=== PATIENT | female | born 1945 | race Caucasian/White ===

== ENCOUNTER 2020-10-10 12:15 | Outpatient (REF) | payer OTHER, SELFPAY | END 2020-10-10 12:16 | disposition home or self-care (01) | LOC: HO.MANLNP 12:15 | PROVIDERS: PCP Physician Assistant; Visit Provider Physician Assistant | DX: R30.9 Painful micturition, unspecified (principal) | CPT/HCPCS: 87086; 87088; 87147; 87186 ==

== ENCOUNTER 2021-07-01 12:12 | Outpatient (REF) | payer OTHER, SELFPAY | END 2021-07-01 12:13 | disposition home or self-care (01) | LOC: HO.MANLNP 12:12 | PROVIDERS: PCP Internal Medicine; Visit Provider Physician Assistant | DX: R30.9 Painful micturition, unspecified (principal) | CPT/HCPCS: 87086; 87088; 87186 ==

== ENCOUNTER 2021-07-31 11:21 | Outpatient (REF) | payer OTHER, SELFPAY ==
[2021-07-31 13:17] LABS: Appearance Urine TURBID; Color Urine YELLOW; Glucose Urine UA NEG (NEG); Leukocyte Esterase Urine 2+ (NEG); Nitrite Urine NEG (NEG); Specific Gravity - Urine >= 1.030 (1.005-1.025); Urine Blood 2+ (NEG); Urine Ketones NEG (NEG); Urine Protein 2+ MG/DL (NEG-TRACE)
[2021-07-31 13:41] LABS: Bacteria Urine 3+ /LPF; Squamous Epithelial Cell Urine 2+ /LPF; WBC Urine TNTC /HPF (0-4)
== END 2021-07-31 11:22 | disposition home or self-care (01) ==
LOC: HO.MANLDS 11:21
PROVIDERS: PCP Internal Medicine; Visit Provider Internal Medicine
DX: N39.0 Urinary tract infection, site not specified (principal)
CPT/HCPCS: 81001; 87086; 87088; 87186

== ENCOUNTER 2021-11-09 10:50 | Outpatient (REF) | payer OTHER, SELFPAY ==
[2021-11-09 14:06] LABS: Color Urine RED; Glucose Urine UA NEG (NEG); Leukocyte Esterase Urine 2+ (NEG); Nitrite Urine POS (NEG); Specific Gravity - Urine 1.025 (1.005-1.025); UACC Culture Trigger YES; Urine Blood 3+ (NEG); Urine Protein 3+ MG/DL (NEG-TRACE)
[2021-11-09 14:12] LABS: Appearance Urine TURBID
[2021-11-09 14:13] LABS: Bacteria Urine 2+ /LPF; RBC Urine TNTC /HPF (0); Squamous Epithelial Cell Urine 1+ /LPF
== END 2021-11-09 10:51 | disposition home or self-care (01) ==
LOC: HO.MANLDS 10:50
PROVIDERS: PCP Physician Assistant; Visit Provider Physician Assistant
DX: R30.9 Painful micturition, unspecified (principal)
CPT/HCPCS: 81001; 81003; 87086; 87088; 87186

== ENCOUNTER 2021-11-23 11:41 | Outpatient (REF) | payer OTHER, SELFPAY ==
[2021-11-23 13:58] LABS: MANUAL DIFF FLAG NO
[2021-11-23 14:07] LABS: Basophils Absolute Auto 0.1 X10*3/uL (0.0-0.2); Eosinophils Absolute Auto 0.2 X10*3/uL (0.0-0.4); Eosinophils Percent Auto 3.5 % (0-4); Hematocrit 42.8 % (37.0-47.0); Hemoglobin 13.7 g/dl (12.0-16.0); Imm Gran Abs Auto 0.02 X10*3/uL (0.00-0.03); Imm Gran Pct Auto 0.3 % (0.0-0.4); Lymphocytes Absolute Auto 1.2 X10*3/uL (1.2-4.9); Lymphocytes Percent Auto 20.1 % (20-40); Mean Corpuscular Hemoglobin 29.9 pg (27.0-33.0); Mean Corpuscular Volume 93.4 fL (80.0-98.0); Mean Platelet Volume 10.1 fL (9.4-12.3); Monocytes Absolute Auto 0.6 X10*3/uL (0.1-1.2); Monocytes Percent Auto 10.3 % (2-11); Neutrophils Absolute Auto 3.9 x10*3/uL (2.0-8.3); Neutrophils Percent Auto 64.8 % (45-73); Platelet Count 248 X10*3/uL (160-400); Red Blood Count 4.58 X10*6/uL (4.20-5.50); Red Cell Distribution Width 13.8 % (11.0-16.0)
[2021-11-23 14:40] LABS: Alanine Aminotransferase 11 U/L (0-31); Albumin Level 3.5 g/dL (3.5-5.0); Alkaline Phosphatase 112 U/L (39-117); Amylase 29 U/L (28-100); Anion Gap 11 (12-20); Aspartate Amino Transferase 20 U/L (5-31); Bilirubin Total 0.6 mg/dL (0.0-1.0); Blood Urea Nitrogen 13 mg/dL (9-16); Calcium 9.4 mg/dL (8.4-10.2); Carbon Dioxide 24 mmol/L (22-29); Chloride 109 mmol/L (96-108); Estimated Glomerular Filt Rate > 60; Gamma Glutamyl Transpeptidase 64 U/L (7-33); Glucose Fasting 108 mg/dL (60-99); Lipase 7 U/L (8-78); Potassium 5.2 mmol/L (3.3-5.1); Sodium 139 mmol/L (135-145); Total Protein 6.7 g/dL (6.5-8.0)
== END 2021-11-23 11:42 | disposition home or self-care (01) ==
LOC: HO.MANLDS 11:41
PROVIDERS: PCP Physician Assistant; Visit Provider Physician Assistant
DX: A07.8 Other specified protozoal intestinal diseases (principal)
CPT/HCPCS: 36415; 80053; 82150; 82977; 83690; 85025

== ENCOUNTER 2021-11-24 10:07 | Outpatient (REF) | payer OTHER, SELFPAY | END 2021-11-24 10:08 | disposition home or self-care (01) | LOC: HO.MANLNP 10:07 | PROVIDERS: PCP Physician Assistant; Visit Provider Physician Assistant | DX: A07.8 Other specified protozoal intestinal diseases (principal) | CPT/HCPCS: 36415; 87045; 87046 ==

== ENCOUNTER 2022-02-16 15:12 | Outpatient (REF) | payer OTHER, SELFPAY ==
[2022-02-16 17:46] LABS: MANUAL DIFF FLAG NO
[2022-02-16 18:04] LABS: Basophils Absolute Auto 0.1 X10*3/uL (0.0-0.2); Basophils Percent Auto 0.7 % (0-2); Eosinophils Absolute Auto 0.1 X10*3/uL (0.0-0.4); Eosinophils Percent Auto 1.7 % (0-4); Hematocrit 42.2 % (37.0-47.0); Hemoglobin 12.9 g/dl (12.0-16.0); Imm Gran Abs Auto 0.04 X10*3/uL (0.00-0.03); Imm Gran Pct Auto 0.5 % (0.0-0.4); Lymphocytes Absolute Auto 1.6 X10*3/uL (1.2-4.9); Lymphocytes Percent Auto 19.2 % (20-40); Mean Corpuscular HGB Conc 30.6 g/dl (31.0-35.0); Mean Corpuscular Hemoglobin 26.9 pg (27.0-33.0); Mean Corpuscular Volume 88.1 fL (80.0-98.0); Mean Platelet Volume 10.3 fL (9.4-12.3); Monocytes Absolute Auto 0.8 X10*3/uL (0.1-1.2); Monocytes Percent Auto 9.3 % (2-11); Neutrophils Absolute Auto 5.6 x10*3/uL (2.0-8.3); Neutrophils Percent Auto 68.6 % (45-73); Platelet Count 350 X10*3/uL (160-400); Red Blood Count 4.79 X10*6/uL (4.20-5.50); Red Cell Distribution Width 13.7 % (11.0-16.0); White Blood Count 8.1 X10*3/uL (4.8-10.8)
[2022-02-16 18:05] LABS: Iron 41 mcg/dL (30-160)
[2022-02-16 18:19] LABS: Percent Iron Saturation 9 % (15-50); Total Iron Binding Capacity 467 mcg/dL (228-428); Unsaturated Iron Binding 426 ug/dL
[2022-02-16 18:25] LABS: Ferritin 18 ng/mL (10-250)
== END 2022-02-16 15:13 | disposition home or self-care (01) ==
LOC: HO.MANLDS 15:12
PROVIDERS: PCP Physician Assistant; Visit Provider Physician Assistant
DX: R31.0 Gross hematuria (principal); R30.0 Dysuria
CPT/HCPCS: 36415; 82728; 83540; 85025; 87086; 87088; 87186

== ENCOUNTER 2022-03-29 16:19 | Outpatient (REF) | payer OTHER, SELFPAY | END 2022-03-29 16:20 | disposition home or self-care (01) | LOC: HO.MANLDS 16:19 | PROVIDERS: PCP Physician Assistant; Visit Provider Physician Assistant | DX: N39.0 Urinary tract infection, site not specified (principal) | CPT/HCPCS: 87086 ==

== ENCOUNTER 2022-10-12 06:18 | Outpatient (REF) | payer OTHER, SELFPAY ==
[2022-10-12 06:21] LABS: MANUAL DIFF FLAG NO
[2022-10-12 06:38] LABS: Alanine Aminotransferase 14 U/L (0-31); Albumin Level 3.1 g/dL (3.5-5.0); Alkaline Phosphatase 98 U/L (39-117); Anion Gap 11 (12-20); Aspartate Amino Transferase 10 U/L (5-31); Bilirubin Total 0.7 mg/dL (0.0-1.0); Blood Urea Nitrogen 10 mg/dL (9-16); Calcium 9.9 mg/dL (8.4-10.2); Carbon Dioxide 28 mmol/L (22-29); Chloride 106 mmol/L (96-108); Estimated Glomerular Filt Rate > 60; Glucose Random 93 mg/dL (60-115); Potassium 4.3 mmol/L (3.3-5.1); Sodium 141 mmol/L (135-145); Total Protein 5.2 g/dL (6.5-8.0)
[2022-10-12 06:48] LABS: Basophils Absolute Auto 0.1 X10*3/uL (0.0-0.2); Basophils Percent Auto 0.7 % (0-2); Eosinophils Absolute Auto 0.3 X10*3/uL (0.0-0.4); Eosinophils Percent Auto 3.6 % (0-4); Hematocrit 29.6 % (37.0-47.0); Hemoglobin 8.8 g/dl (12.0-16.0); Imm Gran Abs Auto 0.05 X10*3/uL (0.00-0.03); Imm Gran Pct Auto 0.7 % (0.0-0.4); Lymphocytes Absolute Auto 1.3 X10*3/uL (1.2-4.9); Lymphocytes Percent Auto 18.4 % (20-40); Mean Corpuscular HGB Conc 29.7 g/dl (31.0-35.0); Mean Corpuscular Hemoglobin 23.6 pg (27.0-33.0); Mean Corpuscular Volume 79.4 fL (80.0-98.0); Mean Platelet Volume 9.8 fL (9.4-12.3); Monocytes Absolute Auto 0.8 X10*3/uL (0.1-1.2); Monocytes Percent Auto 11.5 % (2-11); Neutrophils Absolute Auto 4.5 x10*3/uL (2.0-8.3); Neutrophils Percent Auto 65.1 % (45-73); Platelet Count 450 X10*3/uL (160-400); Red Blood Count 3.73 X10*6/uL (4.20-5.50); Red Cell Distribution Width 18.2 % (11.0-16.0)
== END 2022-10-12 06:19 | disposition home or self-care (01) ==
LOC: HO.MMNH2L 06:18
PROVIDERS: Visit Provider Family Medicine
DX: I10 Essential (primary) hypertension (principal)
CPT/HCPCS: 36415; 80053; 85025

== ENCOUNTER 2022-10-15 19:00 | Outpatient (REF) | payer OTHER, SELFPAY ==
[2022-10-16 20:26] LABS: Appearance Urine Turbid; Color Urine Yellow; Glucose Urine UA Negative (Negative); Leukocyte Esterase Urine Moderate (2+) (Negative); Nitrite Urine Positive (Negative); PH 5.5 (5.0-9.0); Specific Gravity - Urine >= 1.030 (1.005-1.025); UMIC TRIGGER UA YES; Urine Blood Large (3+) (Negative); Urine Ketones Negative (Negative); Urine Protein 100 (2+) mg/dL (Neg-Trace)
[2022-10-16 20:38] LABS: Bacteria Urine 4+ (None Seen); WBC Urine >50 /HPF (0-5)
== END 2022-10-15 19:01 | disposition home or self-care (01) ==
LOC: HO.MMNH2L 19:00
PROVIDERS: Visit Provider Family Medicine
DX: R30.9 Painful micturition, unspecified (principal); R41.0 Disorientation, unspecified
CPT/HCPCS: 81001; 87086; 87088; 87186

== ENCOUNTER 2022-10-18 07:13 | Outpatient (REF) | payer OTHER, SELFPAY ==
[2022-10-18 07:00] LABS: MANUAL DIFF FLAG NO
[2022-10-18 07:29] LABS: Basophils Absolute Auto 0.1 X10*3/uL (0.0-0.2); Eosinophils Absolute Auto 0.2 X10*3/uL (0.0-0.4); Eosinophils Percent Auto 3.7 % (0-4); Hematocrit 28.1 % (37.0-47.0); Hemoglobin 8.4 g/dl (12.0-16.0); Imm Gran Abs Auto 0.02 X10*3/uL (0.00-0.03); Imm Gran Pct Auto 0.4 % (0.0-0.4); Lymphocytes Absolute Auto 1.3 X10*3/uL (1.2-4.9); Lymphocytes Percent Auto 25.6 % (20-40); Mean Corpuscular HGB Conc 29.9 g/dl (31.0-35.0); Mean Corpuscular Hemoglobin 23.7 pg (27.0-33.0); Mean Corpuscular Volume 79.4 fL (80.0-98.0); Mean Platelet Volume 9.8 fL (9.4-12.3); Monocytes Absolute Auto 0.7 X10*3/uL (0.1-1.2); Monocytes Percent Auto 13.4 % (2-11); Neutrophils Absolute Auto 2.9 x10*3/uL (2.0-8.3); Neutrophils Percent Auto 55.9 % (45-73); Platelet Count 463 X10*3/uL (160-400); Red Blood Count 3.54 X10*6/uL (4.20-5.50); Red Cell Distribution Width 17.7 % (11.0-16.0); White Blood Count 5.2 X10*3/uL (4.8-10.8)
[2022-10-18 08:14] LABS: Immature Retic Fraction 13.8 % (3.0-15.9); Retic HGB Equivalent 23.3 pg (30.0-35.0); Reticulocyte Percent 1.3 % (0.5-1.8); Reticulocytes Absolute 0.045 X10*6/uL (0.026-0.095)
[2022-10-18 08:33] LABS: Alanine Aminotransferase 11 U/L (0-31); Albumin Level 3.3 g/dL (3.5-5.0); Alkaline Phosphatase 101 U/L (39-117); Anion Gap 13 (12-20); Aspartate Amino Transferase 9 U/L (5-31); Bilirubin Total 0.4 mg/dL (0.0-1.0); Blood Urea Nitrogen 21 mg/dL (9-16); Calcium 9.5 mg/dL (8.4-10.2); Carbon Dioxide 26 mmol/L (22-29); Chloride 106 mmol/L (96-108); Estimated Glomerular Filt Rate > 60; Glucose Random 89 mg/dL (60-115); Iron 14 mcg/dL (30-160); Percent Iron Saturation 4 % (15-50); Potassium 4.2 mmol/L (3.3-5.1); Sodium 141 mmol/L (135-145); Total Iron Binding Capacity 356 mcg/dL (228-428); Total Protein 5.4 g/dL (6.5-8.0); Unsaturated Iron Binding 342 ug/dL
[2022-10-18 08:55] LABS: Ferritin 14 ng/mL (10-250)
[2022-10-18 09:12] LABS: Folate 9.4 ng/mL (> or = 4.0); Vitamin B12 787 pg/mL (200-900)
== END 2022-10-18 07:14 | disposition home or self-care (01) ==
LOC: HO.MMNH2L 07:13
PROVIDERS: Visit Provider Family Medicine
DX: I10 Essential (primary) hypertension (principal)
CPT/HCPCS: 36415; 80053; 82607; 82728; 82746; 83540; 85025; 85045

== ENCOUNTER 2022-10-25 07:24 | Outpatient (REF) | payer OTHER, SELFPAY ==
[2022-10-25 07:04] LABS: MANUAL DIFF FLAG NO
[2022-10-25 07:37] LABS: Basophils Percent Auto 0.7 % (0-2); Eosinophils Absolute Auto 0.3 X10*3/uL (0.0-0.4); Eosinophils Percent Auto 5.3 % (0-4); Hematocrit 28.3 % (37.0-47.0); Hemoglobin 8.4 g/dl (12.0-16.0); Imm Gran Abs Auto 0.02 X10*3/uL (0.00-0.03); Imm Gran Pct Auto 0.3 % (0.0-0.4); Lymphocytes Absolute Auto 1.4 X10*3/uL (1.2-4.9); Lymphocytes Percent Auto 22.9 % (20-40); Mean Corpuscular HGB Conc 29.7 g/dl (31.0-35.0); Mean Corpuscular Hemoglobin 23.2 pg (27.0-33.0); Mean Corpuscular Volume 78.2 fL (80.0-98.0); Mean Platelet Volume 10.4 fL (9.4-12.3); Monocytes Absolute Auto 0.8 X10*3/uL (0.1-1.2); Monocytes Percent Auto 13.5 % (2-11); Neutrophils Absolute Auto 3.5 x10*3/uL (2.0-8.3); Neutrophils Percent Auto 57.3 % (45-73); Platelet Count 318 X10*3/uL (160-400); Red Blood Count 3.62 X10*6/uL (4.20-5.50); Red Cell Distribution Width 17.6 % (11.0-16.0); White Blood Count 6.1 X10*3/uL (4.8-10.8)
[2022-10-25 08:19] LABS: Alanine Aminotransferase 9 U/L (0-31); Albumin Level 3.1 g/dL (3.5-5.0); Alkaline Phosphatase 82 U/L (39-117); Anion Gap 10 (12-20); Aspartate Amino Transferase 9 U/L (5-31); Bilirubin Total 0.5 mg/dL (0.0-1.0); Blood Urea Nitrogen 14 mg/dL (9-16); Calcium 9.3 mg/dL (8.4-10.2); Carbon Dioxide 28 mmol/L (22-29); Chloride 108 mmol/L (96-108); Estimated Glomerular Filt Rate > 60; Glucose Random 94 mg/dL (60-115); Potassium 4.2 mmol/L (3.3-5.1); Sodium 142 mmol/L (135-145); Total Protein 5.1 g/dL (6.5-8.0)
== END 2022-10-25 07:25 | disposition home or self-care (01) ==
LOC: HO.MMNH2L 07:24
PROVIDERS: Visit Provider Family Medicine
DX: I10 Essential (primary) hypertension (principal)
CPT/HCPCS: 36415; 80053; 85025

== ENCOUNTER 2022-11-01 10:15 | Outpatient (REF) | payer OTHER, SELFPAY ==
[2022-11-01 15:20] LABS: Appearance Urine Hazy; Color Urine ORANGE; Glucose Urine UA 100 mg/dL (Negative); Leukocyte Esterase Urine Moderate (2+) (Negative); Nitrite Urine Positive (Negative); Specific Gravity - Urine >= 1.030 (1.005-1.025); UMIC TRIGGER UA YES; Urine Blood Large (3+) (Negative); Urine Ketones Negative (Negative); Urine Protein 100 (2+) mg/dL (Neg-Trace)
[2022-11-01 15:54] LABS: RBC Urine >20 /HPF (0-2); WBC Urine 21-50 /HPF (0-5)
[2022-11-01 15:55] LABS: Bacteria Urine 2+ (None Seen); Calcium Oxalate Crystals Urine Present; Granular Casts Urine Present; Hyaline Casts Urine 0-2 /LPF (0-2)
== END 2022-11-01 10:16 | disposition home or self-care (01) ==
LOC: HO.MMNH2L 10:15
PROVIDERS: Visit Provider Family Medicine
DX: I10 Essential (primary) hypertension (principal)
CPT/HCPCS: 81001; 87086

== ENCOUNTER 2022-12-01 14:19 | Outpatient (REF) | payer OTHER, SELFPAY ==
[2022-12-01 17:35] LABS: Appearance Urine Turbid; Color Urine BROWN; Glucose Urine UA Negative (Negative); Leukocyte Esterase Urine Moderate (2+) (Negative); Nitrite Urine Positive (Negative); PH 6.5 (5.0-9.0); Specific Gravity - Urine 1.025 (1.005-1.025); UMIC TRIGGER UACC YES; Urine Blood Large (3+) (Negative); Urine Ketones Trace mg/dL (Negative); Urine Protein 100 (2+) mg/dL (Neg-Trace)
[2022-12-01 17:48] LABS: RBC Urine >20 /HPF (0-2)
[2022-12-01 17:49] LABS: Bacteria Urine 2+ (None Seen); Hyaline Casts Urine 0-2 /LPF (0-2); UACC Culture Trigger YES; WBC Clumps Urine Present; WBC Urine >50 /HPF (0-5)
== END 2022-12-01 14:20 | disposition home or self-care (01) ==
LOC: HO.MANLDS 14:19
PROVIDERS: Visit Provider Physician Assistant
DX: N11.8 Other chronic tubulo-interstitial nephritis (principal)
CPT/HCPCS: 81001; 87086

== ENCOUNTER 2023-05-03 | Outpatient (REF) | payer OTHER, SELFPAY ==
[2023-05-03 18:59] LABS: Color Urine Brown
[2023-05-03 19:00] LABS: Appearance Urine Turbid; Glucose Urine UA Negative (Negative); Leukocyte Esterase Urine Moderate (2+) (Negative); PH 5.5 (5.0-9.0); Specific Gravity - Urine 1.025 (1.005-1.025); Urine Blood Large (3+) (Negative); Urine Protein 100 (2+) mg/dL (Neg-Trace)
[2023-05-03 19:01] LABS: Nitrite Urine Negative (Negative); UMIC TRIGGER UACC YES; Urine Ketones Negative (Negative)
[2023-05-03 19:16] LABS: Bacteria Urine 4+ (None Seen); Hyaline Casts Urine 0-2 /LPF (0-2); RBC Urine >20 /HPF (0-2); Squamous Epithelial Cell Urine >20 /HPF (0-2); UACC Culture Trigger YES; WBC Urine >50 /HPF (0-5)
== END 2023-05-03 00:01 ==
LOC: HO.MANLDS
PROVIDERS: Visit Provider Physician Assistant
DX: N11.8 Other chronic tubulo-interstitial nephritis (principal)
CPT/HCPCS: 81001; 81003; 87086

== ENCOUNTER 2023-06-13 13:30 | Outpatient (REF) | payer OTHER, SELFPAY ==
[2023-06-13 17:32] LABS: Appearance Urine Cloudy; Color Urine BROWN; Glucose Urine UA Negative (Negative); Leukocyte Esterase Urine Moderate (2+) (Negative); PH 6.5 (5.0-9.0); UMIC TRIGGER UACC YES; Urine Blood Large (3+) (Negative); Urine Ketones Trace mg/dL (Negative); Urine Protein 100 (2+) mg/dL (Neg-Trace)
[2023-06-13 17:57] LABS: Bacteria Urine 4+ (None Seen); RBC Urine >20 /HPF (0-2); WBC Urine >50 /HPF (0-5)
[2023-06-13 17:58] LABS: Nitrite Urine Positive (Negative); UACC Culture Trigger YES
== END 2023-06-13 13:31 | disposition home or self-care (01) ==
LOC: HO.MANLNP 13:30
PROVIDERS: Visit Provider Internal Medicine
DX: R30.0 Dysuria (principal)
CPT/HCPCS: 81001; 87086; 87088; 87186

== ENCOUNTER 2024-12-28 15:11 | Outpatient (REF) | payer OTHER, SELFPAY ==
--- OUTSIDE RECORDS SUMMARY | 2024-12-28 15:14 | XMS_ITS ---
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 - ICD-10-CM) ACTIVE 10/11/2022 CHRONIC ATRIAL FIBRILLATION, UNSPECIFIED (I48.20 - ICD-10-CM) ACTIVE 10/11/2022 MAJOR DEPRESSIVE DISORDER, S SWAPNIL EPISODE, UNSPECIFIED (F32.9 - ICD-10-CM) ACTIVE 10/11/2022 MUSCLE WASTING AND ATROPHY, NOT ELSEWHERE CLASSIFIED, RIGHT SHOULDER (M62.511 - ICD-10-CM) ACTIVE 10/11/2022 URINARY TRACT INFECTION, SIT E NOT SPECIFIED (N39.0 - ICD-10-CM) ACTIVE 10/11/2022 MUSCLE WASTING AND ATROPHY, NOT ELSEWHERE CLASSIFIED, LEFT SHOULDER (M62.512 - ICD-10-CM) ACTIVE 10/11/2022 PERSONAL HISTORY OF OTHER VE NOUS THROMBOSIS AND EMBOLISM (Z86.718 - ICD-10-CM) ACTIVE 10/12/2022 ESSENTIAL (PRIMARY) HYPERTENSION (I10 - ICD-10-CM) ACT ROBERT 10/11/2022 Results * XRAY CHEST 1 VIEW Performed by: [facility] Component Value Range Date XRAY CHEST 1 VIEW XRAY CHEST 1 VIEWSee NoteFINDINGS: The lungs are without infiltrate, atelectasis or effusion. There is no pulmonary vascular congestion or edema. The heart size is mildly enlarged. The mediastinal contours are within normal limits. Atherosclerotic calcifications are visible in the aorta. There are degenerative changes of the spine. The remaining osseous structures and soft tissues are unremarkable. The PICC line tip is in the upper third of the superior vena cava.CONCLUSION: Mild cardiomegaly, but no acute cardiopulmonary disease.ELECTRONICALLY SIGNED BY JOEL CARDONA M.D. 10/21/2022 12:44:56 PM EST.Reason for Study: Z45.2 ENCOUNTER FOR ADJUSTMENT AND MANAGEMENT OF VASCULAR ACCESS DEVICEPrincipal Result Tax Manager: JOEL CARDONA ([id number])Order Fulfillment Specialist: DWAYNE LOPEZ (DCONDON)Auto Radio Mechanic Order Fulfillment Specialist: JADE 10/21/2022 12:45 pm EST Encounters Encounter Performer Performer Role Encounter Diagnoses Location Date Discharge - Discharged to home or self care - [facility] - Private home/apt. with home health services [facility] 2 01:44 pm EST - 12:26 pm EST Immunizations Vaccine Date SARS-COV-2 (COVID-19) 02/10/2021 12:00 a m EDT SARS-COV-2 (COVID-19) 01/15/2021 12:00 a m EST Pfizer Covid-19 Booster (SARS-COV-2) vac cine 11/10/2021 12:00 am EST Social History
--- OUTSIDE RECORDS SUMMARY | 2024-12-28 15:14 | XMS_ITS | Continuity of Care Document ---
Author Organization [facility], [facility] Address [address] [place] [address] [place] [address] Assessment No assessment recorded. Plan of Treatment Reminders Order Date Submit Date Provider Last Modified By Organization Details Last Modified Time Details Appointments Hospital F/U 2024 03:00P M CHEL BUSH Not available Not available Not available Lab vitamin B12 + folate, serum or blood 2024 025 [facility], [address] [place] [address], [id number], 12/28/2024 15:00:42 CBC w/ auto diff 2024 025 [facility], [address] [place] [address], [id number], 12/28/2024 15:00:42 CMP, serum or plasma 2024 025 [facility], [address] [place] [address], [id number], 12/28/2024 15:00:42 Referral None recorded. Procedures None recorded. Surgeries None recorded. Imaging None recorded. Medication Orders lorazepam 1 mg tablet 2024 025 [facility] #0839, [address] [place], [address], 12/28/2024 14:57:49 aripipraz ole 2 mg tablet 2024 025 [facility]armacy #0838, [address] [place], [address], 12/28/2024 14:57:47 Xarelto 20 mg tablet 2024 025 [facility], [address] [place], [address], 12/28/2024 14:57:47 metoprolo l tartrate 50 mg tablet 2024 025 [facility], [address] [place], [address], 12/28/2024 14:57:46 fluoxetin e 20 mg capsule 2024 025 [facility], [address] [place], [address], 12/28/2024 14:57:47 bupropion HCl SR 150 mg tablet,12 hr sustained -release 2024 025 [facility], [address] [place], [address], 12/28/2024 14:57:47 Patient TargetsNo targets recorded. Patient InstructionsNo instructions recorded. Reason for Referral None Reported. Problems Name Problem SNOMED Code Status Onset Date Resolution Date Notes Provider Name and Address Organization Details Recorded Time Sleep apnea 86604084 Active 2018 Not Available [facility] 3 19:11:46 Hemorrho ids 91233676 Active 2018 Not Available [facility] 3 19:11:46 Edema 604414943 Active 2018 bilatera l Not Available [facility] 3 19:11:45 Depressi ve disorder 11094644 Active 2018 Not Available [facility] 3 19:11:46 Traumati c leg ulcer 123020213 Completed 201805/01/2021 [address]HEL BUSH [address] [place] [address], [id number], [facility] - [facility] 3 13:25:15 Essentia l hyperten sincere 45300687 Active 2018 Not Available [facility] 3 19:11:46 Dysuria 36698106 Active 2021 Not Available [facility] 3 19:11:46 External hordeolu m 3789456 Active 2021 Not Available [facility] 3 19:11:45 Recurren t urinary tract infectio n 759763838 Active 2021 Not Available [facility] 3 19:11:45 Linden hematuri a 711187971 Active 2021 Not Available [facility] 3 19:11:45 Hordeolu m externum of upper eyelid of right eye 9133888358 07487 Active 2021 Not Available [facility] 3 19:11:46 Recurren t falls 876096846 Active 2021 Not Available [facility] 3 19:11:46 Iron deficien cy anemia 47641343 Active 2021 Not Available [facility] 3 19:11:46 Deep venous thrombos is 331177980 Active 2021 Not Available [facility] 3 19:11:45 Deep venous thrombos is 736270947 Active 2021 Not Available [facility] 3 19:11:45 Restless ness and agitatio n 064830049 Active 2021 Not Available [facility] 3 19:11:45 Moderate major depressi on 891167 Active 2022 Not Available [facility] 3 19:11:46 Candidia sis of skin 80847865 Active 2022 Not Available [facility] 3 19:11:46 Physical decondit ioning 7852905112 9102 Active 2022 Not Available [facility] 3 19:11:46 Fall Active 2022 Not Available [facility] 3 19:11:45 Chronic urinary tract infectio n 256651991 Active 2022 Not Available [facility] 3 19:11:45 Altered mental status 911806436 Active 2022 Not Available [facility] 3 19:11:46 Traumati c leg ulcer 777912830 Active 2022 Not Available [facility] 3 19:11:45 Atrophic vaginiti s 07716138 Active 2022 CHEL BUSH [address] [place], [address], [facility] 3 10:03:46 Chronic ulcer of lower extremit y 65997174 Active 2022 CHEL BUSH [address] [place], [address], [facility] 3 10:06:24 Atrial fibrilla tion 40884433 Active 2017 Not Available [facility] 3 19:11:46 Divertic ulitis 578863179 Active 2017 Not Available [facility] 3 19:11:46 Osteopen ia 288535539 Active 2017 Not Available [facility] 3 19:11:46 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 extremit y 484584270 Active 2024 CHEL BUSH [address] [place], [address], [facility] 5 14:56:12 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 extremit y 489975489 Active 2024 CHEL BUSH [address] [place], [address], [facility] 5 14:57:09 Ulcer of foot 67245689 Active 2024 CHEL BUSH [address] [place], [address], [facility] 5 14:57:21 Cobalami n deficien cy 435682103 Active 2024 CHEL BUSH [address] [place], [address], [facility] 5 14:58:11 Gastroes ophageal reflux disease 665269866 Active 2017 Not Available [facility] 3 19:11:45 Deep venous thrombos is 936140959 Active 2017 [employer] right leg Not Available [facility] 3 19:11:45 Chronic cystitis 11019475 Active 2017 Not Available [facility] 3 19:11:46 Pneumoni a 616617831 Completed 201705/01/2021 CHEL BUSH [address] [place], [address], [facility] 1 11:07:24 Problem Notes None recorded. Medical Equipment None Reported. Allergies Allergen ID Allergen Name Allergen Category Reaction Reaction Severity Criticality Documentation Date Start Date Code Code System Note Provider Name and Address Organization Details Recorded Time 106 Keflex medicatio n rash Not available Not available 01/20/2018 7 RxNorm Betty Ho [facility] 8 11:05:38 Medications Name Sig Start Date Stop Date Status Note LastModified by Organization Details LastModified Time quetiapine 25 mg tablet TAKE 1 TABLET BY MOUTH EVERY DAY AFTER DINNER 12/28 completed Not Available Not Available Not Available amoxicilli n 500 mg capsule TAKE 1 CAPSULE BY MOUTH EVERY 8 HOURS FOR 7 DAYS 07/07 completed Not Available Not Available Not Available furosemide 40 mg tablet Take 1 tablet every day by oral route for 90 days. 05/01 completed Not Available Not Available Not Available bupropion HCl SR 150 mg tablet,12 hr sustained- release Take 1 tablet twice a day by oral route for 90 days. 2024 active Not Available Not Available Not Avai lable prednisone 10 mg tablet 06/14 completed Not Available Not Available Not Available Tylenol 500 mg capsule Take 2 tablets every 4 hours by oral route. 06/26 completed Not Available Not Available Not Available doxycyclin e hyclate 100 mg capsule Take 1 capsule twice a day by oral route with meals for 7 days. 10/12 completed Not Available Not Available Not Available clindamyci n HCl 300 mg capsule Take 1 capsule every 6 hours by oral route for 7 days. 06/01 completed Not Available Not Available Not Available polyethyle ne glycol 3350 17 gram oral powder packet 06/06 completed Not Available Not Available Not Available azithromyc in 250 mg tablet TAKE 2 TABLETS BY MOUTH TODAY, THEN TAKE 1 TABLET DAILY FOR 4 DAYS DIRECTED 10/12 completed Not Available Not Available Not Available fosfomycin tromethami ne 3 gram oral packet TAKE 3 GRAMS (1 SACHET) BY MOUTH TODAY AND REPEAT IN 72 HOURS. 11/08 completed Not Available Not Available Not Available diltiazem CD 180 mg capsule,ex tended release 24 hr 12/28 completed Not Available Not Available Not Available tizanidine 4 mg tablet TAKE 1 TABLET BY MOUTH EVERY 6 HOURS NEEDED 07/08 completed Not Available Not Available Not Available fluconazol e 150 mg tablet take 1 tablet once, may repeat in 72 hours if needed 12/28 completed Not Available Not Available Not Available amiodarone 200 mg tablet Take 1 tablet every day by oral route for 90 days. 06/26 completed Not Available Not Available Not Available metoprolol succinate ER 50 mg tablet,ext ended release 24 hr TAKE 1 TABLET BY MOUTH EVERY DAY 12/28 completed Not Available Not Available Not Available sulfametho xazole 400 mg-trimeth oprim 80 mg tablet TAKE 1 TABLET BY MOUTH TWICE A DAY 04/04 completed Not Available Not Available Not Available hydrocodon e 5 mg-acetami nophen 325 mg tablet 07/30 completed Not Available Not Available Not Available diltiazem CD 240 mg capsule,ex tended release 24 hr Take 1 capsule every day by oral route for 90 days. 10/13 completed Not Available Not Available Not Available phenazopyr idine 200 mg tablet Take 1 tablet 3 times a day by oral route for 5 days. 02/16 completed Not Available Not Available Not Available ondansetro n HCl 4 mg tablet Take 2 tablets twice a day by oral route as needed for 7 days. 02/16 completed Not Available Not Available Not Available metoprolol succinate ER 100 mg tablet,ext ended release 24 hr TAKE 1 TABLET BY MOUTH DAILY. TAKE IN ADDITION TO 50 MG FOR TOTAL DAILY DOSE OF 150 MG PER DAY 12/28 completed 100 mg + 50 mg = 150 mg ER Not Available Not Available Not Available sertraline 100 mg tablet 08/15 completed Not Available Not Available Not Available cyanocobal nicholas (vit B-12) 1,000 mcg tablet TAKE 1 TABLET BY MOUTH EVERY DAY active Not Available Not Available No t Available warfarin 2.5 mg tablet Take 2 tablets every day by oral route in the evening for 90 days. 11/03 completed Not Available Not Available Not Available ciprofloxa kali 250 mg tablet TAKE 1 TABLET BY MOUTH TWICE A DAY FOR 7 DAYS 12/28 completed Not Available Not Available Not Available levofloxac in 250 mg tablet TAKE 1 TABLET BY MOUTH EVERY DAY FOR 7 DAYS 12/28 completed Not Available Not Available Not Available prochlorpe razine maleate 10 mg tablet 06/06 completed Not Available Not Available Not Available ciprofloxa kali 500 mg tablet TAKE 1 TABLET BY MOUTH EVERY 12 HOURS FOR 7 DAYS 04/04 completed Not Available Not Available Not Available sulfametho xazole 800 mg-trimeth oprim 160 mg tablet TAKE 1 TABLET BY MOUTH TWICE A DAY FOR 10 DAYS 10/12 completed Not Available Not Available Not Available bupropion HCl SR 100 mg tablet,12 hr sustained- release Take 1 tablet every day by oral route in the morning for 30 days. 05/15 completed Not Available Not Available Not Available amoxicilli n 500 mg tablet TAKE 1 TABLET BY MOUTH EVERY 8 HOURS FOR 7 DAYS 06/01 completed Not Available Not Available Not Available prednisone 10 mg tablets in a dose pack Take 3 tablets every day by oral route for 5 days. 06/14 completed Not Available Not Available Not Available terbinafin e HCl 250 mg tablet Take 1 tablet every day by oral route for 30 days. 05/01 completed Not Available Not Available Not Available methenamin e hippurate 1 gram tablet TAKE 1 TABLET (1 G TOTAL) BY MOUTH DAILY. active Not Available Not Available No t Available hydromorph one 2 mg tablet 01/28 completed Not Available Not Available Not Available lorazepam 0.5 mg tablet TAKE 1 TABLET BY MOUTH EVERY 8 HOURS NEEDED 11/08 completed Not Available Not Available Not Available amiodarone 400 mg tablet 11/03 completed Not Available Not Available Not Available meclizine 25 mg tablet Take 1 tablet twice a day by oral route as needed. 06/11 completed Not Available Not Available Not Available diltiazem CD 300 mg capsule,ex tended release 24 hr Take 1 capsule every day by oral route. 02/16 completed Not Available Not Available Not Available phenazopyr idine 100 mg tablet 04/04 completed Not Available Not Available Not Available erythromyc in 5 mg/gram (0.5 %) eye ointment APPLY 1 CM RIBBON INTO THE LOWER CONJUNCTI PRICE SAC(S) IN THE AFFECTED EYE(S) 3 TIMES PER DAY 07/06 completed Not Available Not Available Not Available hyoscyamin e sulfate 0.125 mg tablet Take 1 tablet every day by oral route for 90 days. 06/26 completed Not Available Not Available Not Available cyanocobal nicholas (vit B-12) 1,000 mcg/mL injection solution INJECT 1 ML EVERY WEEK BY SUBCUTANE OUS ROUTE FOR 30 DAYS. 08/03 completed Not Available Not Available Not Available ferrous sulfate 325 mg (65 mg iron) tablet TAKE 1 TABLET BY MOUTH TWICE A DAY 12/28 completed Not Available Not Available Not Available nitrofuran toin macrocryst al 100 mg capsule TAKE 1 CAPSULE BY MOUTH TWICE A DAY FOR 7 DAYS 10/12 completed Not Available Not Available Not Available buspirone 10 mg tablet TAKE 1 TABLET BY MOUTH TWICE A DAY active Not Available Not Available No t Available clotrimazo le-betamet hasone 1 %-0.05 % topical cream APPLY TO THE AFFECTED AND SURROUNDI NG AREAS OF SKIN BY TOPICAL ROUTE 2 TIMES PER DAY IN THE MORNING AND EVENING FOR 2 WEEKS 12/28 completed Not Available Not Available Not Available metoprolol tartrate 50 mg tablet Take 1 tablet twice a day by oral route as directed for 90 days. 2024 active Not Available Not Available Not Avai lable fluoxetine 10 mg capsule TAKE 1 CAPSULE BY MOUTH EVERY DAY FOR 90 DAYS 12/28 completed Not Available Not Available Not Available mupirocin 2 % topical ointment APPLY A liberal AMOUNT TO THE AFFECTED AREA BY TOPICAL ROUTE 3 TIMES PER DAY 10/03 completed Not Available Not Available Not Available mirtazapin e 15 mg tablet TAKE 1 TABLET BY MOUTH EVERY DAY active Not Available Not Available No t Available metoprolol succinate ER 25 mg tablet,ext ended release 24 hr 03/02 completed Not Available Not Available Not Available nystatin 100,000 unit/gram topical powder APPLY TO AFFECTED AREA TWICE A DAY 12/28 completed Not Available Not Available Not Available lorazepam 1 mg tablet Take 1 tablet 3 times a day by oral route as needed for 30 days. 2024 active Not Available Not Available Not Avai lable levofloxac in 500 mg tablet TAKE 1 TABLET EVERY 24 HOURS BY ORAL ROUTE FOR 7 DAYS. 07/08 completed Not Available Not Available Not Available levofloxac in 750 mg tablet 12/28 completed Not Available Not Available Not Available methylpred nisolone 4 mg tablets in a dose pack TAKE 6 TABLETS ON DAY 1 DIRECTED ON PACKAGE AND DECREASE BY 1 TAB EACH DAY FOR A TOTAL OF 6 DAYS 10/12 completed Not Available Not Available Not Available albuterol sulfate HFA 90 mcg/actuat ion aerosol inhaler INHALE 2 PUFFS INTO THE LUNGS EVERY 4 HOURS. 12/28 completed Not Available Not Available Not Available fluoxetine 20 mg capsule take one cap qd 2024 active Not Available Not Available Not Avai lable doxycyclin e hyclate 100 mg tablet TAKE 1 TABLET BY MOUTH TWICE A DAY FOR 10 DAYS 04/04 completed Not Available Not Available Not Available naproxen 500 mg tablet 08/15 completed Not Available Not Available Not Available amoxicilli n 875 mg-potassi um clavulanat e 125 mg tablet TAKE 1 TABLET BY MOUTH EVERY 12 HOURS FOR 7 DAYS 12/28 completed Not Available Not Available Not Available amoxicilli n 500 mg-potassi um clavulanat e 125 mg tablet 12/28 completed Not Available Not Available Not Available oxycodone 5 mg tablet TAKE 1 TABLET BY MOUTH EVERY 6 HOURS NEEDED FOR 14 DAYS 04/04 completed Not Available Not Available Not Available Estrace 0.01% (0.1 mg/gram) vaginal cream Insert 2 g twice a week by vaginal route as directed. 12/28 completed Not Available Not Available Not Available enoxaparin 100 mg/mL subcutaneo us syringe 01/28 completed Not Available Not Available Not Available Pneumovax- 23 25 mcg/0.5 mL injection syringe 08/15 completed Not Available Not Available Not Available levofloxac in 500 mg/100 mL in 5 % dextrose intravenou s piggyback 11/08 completed Not Available Not Available Not Available cholestyra mine (with sugar) 4 gram powder for susp in a packet 06/06 completed Not Available Not Available Not Available bupropion HCl XL 300 mg 24 hr tablet, extended release TAKE 1 TABLET BY MOUTH EVERY DAY 10/13 completed Not Available Not Available Not Available bupropion HCl XL 150 mg 24 hr tablet, extended release TAKE 1 TABLET BY MOUTH EVERY DAY 12/28 completed Not Available Not Available Not Available nitrofuran toin monohydrat e/macrocry stals 100 mg capsule TAKE 1 CAPSULE BY MOUTH TWICE A DAY FOR 5 DAYS 12/28 completed Not Available Not Available Not Available duloxetine 60 mg capsule,de layed release TAKE 1 CAPSULE BY MOUTH EVERY DAY 12/21 completed Not Available Not Available Not Available magnesium 12/28 completed OTC daily Not Available Not Available Not Available senna 06/26 completed Not Available Not Available Not Available Colace 12/25 completed Not Available Not Available Not Available Vitamin D3 5000IU 12/28 completed Not Available Not Available Not Available nitrofuran toin daily 03/29 completed Not Available Not Available Not Available Culturelle at night 12/28 completed Not Available Not Available Not Available aripiprazo le 2 mg tablet Take 1 tablet every day by oral route for 90 days. 2024 active Not Available Not Available Not Avai lable BD PosiFlush Normal Saline 0.9 % injection syringe 04/04 completed Not Available Not Available Not Available GaviLyte-G 236 gram-22.74 gram-6.74 gram-5.86 gram oral solution 06/06 completed Not Available Not Available Not Available Xarelto 20 mg tablet Take 1 tablet by oral route as directed for 90 days. 2024 active Not Available Not Available Not Avai lable Eliquis 5 mg tablet 08/15 completed Not Available Not Available Not Available Prolensa 0.07 % eye drops 12/25 completed Not Available Not Available Not Available Rexulti 1 mg tablet TAKE 1 TABLET BY MOUTH EVERY DAY FOR 30 DAYS 09/23 completed Not Available Not Available Not Available Rexulti 0.5 mg tablet TAKE 1 TABLET BY MOUTH ONCE DAILY 06/01 completed Not Available Not Available Not Available Rexulti 2 mg tablet TAKE 1 TABLET BY MOUTH EVERY DAY 11/08 completed Not Available Not Available Not Available Hemmorex-H C 25 mg rectal suppositor y UNWRAP & INSERT 1 SUPPOSITO RY TWICE A DAY RECTALLY FOR 15 DAYS. 04/04 completed Not Available Not Available Not Available metoprolol succinate ER 50 mg capsule sprinkle, ext. release 24 hr Take 1 capsule 3 times a day by oral route. 04/22 completed Not Available Not Available Not Available Fluad 65yr up(PF)45 mcg(15 mcgx3)/0.5 mL intramuscu lar syringe 11/03 completed Not Available Not Available Not Available Fluzone High-Dose (PF) 180 mcg/0.5 mL intramuscu lar syringe 10/16 completed Not Available Not Available Not Available Tiadylt ER 300 mg capsule,ex tended release TAKE 1 CAPSULE BY MOUTH EVERY DAY 12/28 completed Not Available Not Available Not Available AZO D-Mannose 500 mg capsule Take 2 capsules every day by oral route. 07/06 completed Not Available Not Available Not Available Vitals Date Recorded Body height Body mass index (BMI) Body weight Heart rate Oxygen saturation Oxygen saturation in Arterial blood by Pulse oximetry Systolic blood pressure Diastolic blood pressure Provider Name and Address Organization Details Last Updated DateTime 5 167.64 cm 31.6 kg/m2 50893.1 g 68 /min 98 % 98 % 118 mm[Hg] 72 mm[Hg] CHEL BUSH [address] [place], [address] [place], [place] - [facility] 5 14:37:57 Social History Question Answer Notes LastModified by Organizat ion Details LastModified Time Tobacco Smoking Status Never Smoker Not Available [facility] 09/23/2020 03:36:23 What Is Your Level Of Alcohol Consumption? Occasional [id number] Information not available 09/23/2020 What Is Your Level Of Caffeine Consumption? Occasional Green Tea [id number] Information not available 09/23/2020 What Was The Date Of Your Most Recent Tobacco Screening? 12/28/2024 Information not available 12/28/2024 Do You Or Have You Ever Used Any Other Forms Of Tobacco Or Nicotine? No Information not available 03/29/2022 Sex: Unknown Functional Status Question Answer Note LastModified by Organization D etails LastModified Time What is your exercise level? None [id number] Information not available 09/23/2020 Mental Status None recorded. Family History Nothing Reported. Medical History No medical history recorded. Gynecological HistoryNo gynecological history recorded. Obstetrics History GPAL:G 0 P 0 0 0 0 Immunizations Vaccine Type Date Status Note Provider Nam e and Address Organization Details Recorded Time Pneumococcal conjugate PCV 13 5 completed Not Available [facility] 05/19/2023 19:11:46 pneumococcal polysaccharide PPV23 8 completed Not Available [facility] 05/19/2023 19:11:46 Influenza, split virus, quadrivalent, preservative 1 completed Not Available [facility] 05/19/2023 19:11:46 COVID-19, mRNA, LNP-S, PF, 30 mcg/0.3 mL dose 1 completed Not Available [facility] 05/19/2023 19:11:46 influenza, unspecified formulation 2 completed Not Available [facility] 05/19/2023 19:11:46 Influenza, split virus, quadrivalent, preservative 8 completed Not Available [facility] 05/19/2023 19:11:46 Influenza, split virus, quadrivalent, preservative 9 completed Not Available [facility] 05/19/2023 19:11:46 COVID-19, mRNA, LNP-S, PF, 30 mcg/0.3 mL dose 1 completed Not Available [facility] 05/19/2023 19:11:46 COVID-19, mRNA, LNP-S, PF, 30 mcg/0.3 mL dose 1 completed Not Available [facility] 05/19/2023 19:11:46 Past Encounters Encounter ID Performer Location Encounter Start Date Encounter Closed Date Diagnosis/Indication Diagnosis SNOMED-CT Code Diagnosis ICD10 Code Diagnosis Note [id number] [facility] [address] [facility],[place] [address] 12/28/2024 14:29:13 12/28/2024 15:05:38 Restlessness and agitation 516740206 R45.1 stable on the medication Depressive disorder 3548 9007 F32.1 stable on medication Moderate m ajor depression 735578 F32.1 will set up with updated script Essential hypertension 15636319 I10 stable on medication Atrial fibrillation 4943 6004 I48.0 stable Deep venou s thrombosis of lower extremity 968310885 I82.402 resolved Ulcer of foot 01994877 L 97.919 resolved Cobalamin deficiency 190 859443 E53.8 needs recheck, was not given her [facility] Concerns Section Related Observation LastModified by Organization Detai ls LastModified Time None Recorded Concern Status LastModified by Organization Details LastModified Time None Recorded Payers Encounter Date Sequence Insurance Name Policy Number Policy Huynh Covered Member ID Huynh Member ID Guarantor Name 12/28/2024 1 [facility] [employer] [id number] Amy Mata [id number] Amy Mata Notes Date Note Type Note Provider Name a nd Address Organization Details Recorded Time 5 text/html d/c termite treater helper care restless agitation: stable on the medicationthe patient is on the correct dosages based on the nursing report from Neva Arora depression: stable on medicationupdated in chart, no side effects currentlyno major mood changes or worsening mood afib: stable on just the metoprolol and xareltono sig bleeding denies, no blood in stool and urine DVT: resolved, no recent complications b12 def: has not been on it at the alf, will needs levels rechecked to see if she needs to restart the supplement no other changes, everything corrected in chart all questions answered today CHEL BUSH [address] [place], [address], [place] [facility] 12/28/2024 15:05:37 OBGyn Episode No OBEpisode recorded.
--- OUTSIDE RECORDS SUMMARY | 2024-12-28 15:14 | XMS_ITS | Data Portability ---
Author Organization [facility] Home Service Address [address] [place] [address] Assessment Encounter Date Assessment Date Assessment LastModified by Organization Details LastModified Time 04/04/2023 04/04/2023 The patient denies recent falls or recurrent falls. Denies instability, weakness, abnormal gait, or difficulties with movement. The patient wears correct, supportive shoes and is not otherwise severely visually impaired. The patient is full weight bearing and if using the assistance of a cane or walker feels supported and stable with the use of such devices. All medical conditions have been taken into account that may pose a risk for the patient for falls. Home adriel, carpets and/or rugs do not pose a challenge for the patient. The patient has been educated about the use of vitamin D supplementation for bone health and prevention of hypotensive episodes that may increase risk for fall. All question and concerns were answered to the patient's satisfaction. [email or web address] Not available 04/04/2023 13:26:18 10/12/2023 10/12/2023 Patient agreed and verbally consents to this audio and video Telehealth appt via a secure platform [email or web address] Not available 10/12/2023 10:06:19 Plan of Treatment Reminders Order Date Submit Date Provider Last Modified By Organization Details Last Modified Time Details Appointments Hospital F/U 2024 03:00P M CHEL BUSH Not available Not available Not available Lab urinalysi s complete, reflex culture 2021 022 [facility], [address] [place] [address], [place], [address], 12/07/2022 08:48:49 urinalysi s, dipstick 2022 023 [email or web address] [facility], [address], [address], [place], [address], 06/13/2023 14:33:52 vitamin B12 + folate, serum or blood 2024 025 [facility], [address] [place] [address], [address], 12/28/2024 15:00:42 CBC w/ auto diff 2024 025 [facility], [address] [place] [address], [address], 12/28/2024 15:00:42 CMP, serum or plasma 2024 025 [facility], [address] [place] [address], [address], 12/28/2024 15:00:42 Referral None recorded. Procedures None recorded. Surgeries None recorded. Imaging None recorded. Medication Orders aripipraz ole 2 mg tablet 2021 022 [facility], [address] [place], [address], 12/21/2022 11:48:18 lorazepam 1 mg tablet 2021 022 [facility], [address] [place], [address], 11/08/2022 15:33:58 estradiol 0.01% (0.1 mg/gram) vaginal cream 2022 023 [facility], [address] [place], [address], 12/28/2024 14:50:15 levofloxa kali 250 mg tablet 2022 023 [facility], [address] [place], [address], 12/28/2024 14:35:26 lorazepam 1 mg tablet 2024 025 [facility] [address] [place], [address], 12/28/2024 14:57:49 aripipraz ole 2 mg tablet 2024 025 [facility], [address] [place], [address], 12/28/2024 14:57:47 Xarelto 20 mg tablet 2024 025 [facility], [address] [place], [address], 12/28/2024 14:57:47 metoprolo l tartrate 50 mg tablet 2024 025 [facility], [address] [place], [address], 12/28/2024 14:57:46 fluoxetin e 20 mg capsule 2024 025 [facility], [address] [place], [address], 12/28/2024 14:57:47 bupropion HCl SR 150 mg tablet,12 hr sustained -release 2024 025 [facility], [address] [place], [address], 12/28/2024 14:57:47 Patient TargetsNo targets recorded. Patient Instructions Encounter Date Encounter Id Patient Instructions Last Modified By Organization Details Last Modified Time 11/08/2022 [id number] pulse oximetry* [email or web address] Not available 11/08/2022 15:33:58 Reason for Referral None Reported. Results Created Date Observation Date Name Description Value Unit Range Abnormal Flag Note LastModifiedBy Organization Detail LastModifiedTime 11/08/20 22 11/08/2022 pulse oxime try* Result 98 Not Available [facility] [address] [facility], [place], [address], 11/08/2022 09:12:25 06/13/20 23 06/13/2023 urina lysis , dipst ick Leukocytes Large Not Available [address], [place], [address], 06/13/2023 13:42:39 06/13/20 23 06/13/2023 urina lysis , dipst ick Nitrite positi ve Not Available [address], [place], [address], 06/13/2023 13:42:39 06/13/20 23 06/13/2023 urina lysis , dipst ick Urobilinogen .2 Not Available [address], [place], [address], 06/13/2023 13:42:39 06/13/20 23 06/13/2023 urina lysis , dipst ick Protein 100 Not Available [address], [place], [address], 06/13/2023 13:42:39 06/13/20 23 06/13/2023 urina lysis , dipst ick pH 6.0 Not Available [address], [place], [address], 06/13/2023 13:42:39 06/13/20 23 06/13/2023 urina lysis , dipst ick Blood Large Not Available [address], [place], [address], 06/13/2023 13:42:39 06/13/20 23 06/13/2023 urina lysis , dipst ick Specific [place] 1.015 Not Available [facility] [address] [facility] [address], [place], [address], 06/13/2023 13:42:39 06/13/20 23 06/13/2023 urina lysis , dipst ick Ketone Small Not Available [facility] [address] [facility] [address], [place], [address], 06/13/2023 13:42:39 06/13/20 23 06/13/2023 urina lysis , dipst ick Bilirubin Negati ve Not Available [facility] [address] [facility] [address], [place], [address], 06/13/2023 13:42:39 06/13/20 23 06/13/2023 urina lysis , dipst ick Glucose Negati ve Not Available [facility] [address] [facility] [address], [place], [address], 06/13/2023 13:42:39 06/13/20 23 06/13/2023 urina lysis , dipst ick Appearance Turbid Not Available [facility] [address] [facility] [address], [place], [address], 06/13/2023 13:42:39 06/13/20 23 06/13/2023 urina lysis , dipst ick Color Red Not Available [facility] [address] [facility] [address], [place], [address], 06/13/2023 13:42:39 10/13/2010/13/2023 XR, chest , 2 view No observ ation record ed. [email or web address] [facility] (Emergency Room) [address] [facility], [place], [address], 10/13/2023 07:53:53 10/13/2010/13/2023 XR, ant brian, 1 view No observ ation record ed. [email or web address] [facility] (Emergency Room) [address] [place] [address], [address], 10/13/2023 07:54:20 Result Notes None recorded. Problems Name Problem SNOMED Code Status Onset Date Resolution Date Notes Provider Name and Address Organization Details Recorded Time Sleep apnea 49988317 Active 2018 Not Available [facility] 3 19:11:46 Hemorrho ids 83847830 Active 2018 Not Available [facility] 3 19:11:46 Edema 237497149 Active 2018 bilatera l Not Available [facility] 3 19:11:45 Depressi ve disorder 02407313 Active 2018 Not Available [facility] 3 19:11:46 Traumati c leg ulcer 211590706 Completed 201805/01/2021 CHEL BUSH [address] [place] [address], [address] 3 13:25:15 Essentia l hyperten sincere 32243453 Active 2018 Not Available [facility] 3 19:11:46 Dysuria 05715189 Active 2021 Not Available [facility] 3 19:11:46 External hordeolu m 1060442 Active 2021 Not Available [facility] 3 19:11:45 Recurren t urinary tract infectio n 551299263 Active 2021 Not Available [facility] 3 19:11:45 Linden hematuri a 018304677 Active 2021 Not Available [facility] 3 19:11:45 Hordeolu m externum of upper eyelid of right eye 4706183249 25722 Active 2021 Not Available [facility] 3 19:11:46 Recurren t falls 692134289 Active 2021 Not Available [facility] 3 19:11:46 Iron deficien cy anemia 89199921 Active 2021 Not Available [facility] 3 19:11:46 Deep venous thrombos is 621608727 Active 2021 Not Available [facility] 3 19:11:45 Deep venous thrombos is 748522920 Active 2021 Not Available [facility] 3 19:11:45 Restless ness and agitatio n 685095813 Active 2021 Not Available [facility] 3 19:11:45 Moderate major depressi on 428953 Active 2022 Not Available [facility] 3 19:11:46 Candidia sis of skin 81987602 Active 2022 Not Available [facility] 3 19:11:46 Physical decondit ioning 6211940571 9102 Active 2022 Not Available [facility] 3 19:11:46 Fall Active 2022 Not Available [facility] 3 19:11:45 Chronic urinary tract infectio n 460358357 Active 2022 Not Available [facility] 3 19:11:45 Altered mental status 850938245 Active 2022 Not Available [facility] 3 19:11:46 Traumati c leg ulcer 957301351 Active 2022 Not Available [facility] 3 19:11:45 Atrophic vaginiti s 48740764 Active 2022 CHEL BUSH [address] [place], [address], [facility] 3 10:03:46 Chronic ulcer of lower extremit y 45327092 Active 2022 CHEL BUSH [address] [place], [address], [facility] 3 10:06:24 Atrial fibrilla tion 61690543 Active 2017 Not Available [facility] 3 19:11:46 Divertic ulitis 190722096 Active 2017 Not Available [facility] 3 19:11:46 Osteopen ia 634476714 Active 2017 Not Available [facility] 3 19:11:46 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 extremit y 481152836 Active 2024 CHEL BUSH [address] [place], [address], [facility] 5 14:56:12 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 extremit y 690587760 Active 2024 CHEL BUSH [address] [place], [address], [facility] 5 14:57:09 Ulcer of foot 07881249 Active 2024 CHEL BUSH [address] [place], [address], [facility] 5 14:57:21 Cobalami n deficien cy 690778141 Active 2024 CHEL BUSH [address] [place], [address], [facility] 5 14:58:11 Gastroes ophageal reflux disease 390119388 Active 2017 Not Available [facility] 3 19:11:45 Deep venous thrombos is 150223909 Active 2017 [place] ld Filter right leg Not Available [facility] 3 19:11:45 Chronic cystitis 11804191 Active 2017 Not Available [facility] 3 19:11:46 Pneumoni a 033574292 Completed 201705/01/2021 CHEL BUSH [address] [place], [address], [facility] 1 11:07:24 Problem Notes None recorded. Procedures Surgical History None recorded. Imaging Results Imaging Date Name Status LastModified by Organiz ation Details LastModified Time 10/13/2023 XR, chest, 2 [facility] completed [email or web address] [address] [place], [address], 10/13/2023 07:53:53 10/13/2023 XR, shoulder, 1 view completed [email or web address] [address] [place], [address], 10/13/2023 07:54:20 Procedure Notes None recorded. Medical Equipment None Reported. Allergies Allergen ID Allergen Name Allergen Category Reaction Reaction Severity Criticality Documentation Date Start Date Code Code System Note Provider Name and Address Organization Details Recorded Time 106 Keflex medicatio n rash Not available Not available 01/20/2018 7 RxNorm Betty shipman [place] - [facility] 8 11:05:38 Medications Name Sig Start Date [...] Not Available Not Available Not Available Fluad 2017- 65yr up(PF)45 mcg(15 mcgx3)/0.5 mL intramuscu lar [...] and Address Organization Details Last Updated DateTime 2 165.1 cm 38 kg/m2 100532. 42 g 102 /min 98 % 98 % 148 mm[Hg] 80 mm[Hg] CHEL BUSH [address] [place], [address] [place] [address] Internal [facility] 2 15:01:45 Date Recorded Body height Body mass index (BMI) Body weight Heart rate Oxygen saturation Oxygen saturation in Arterial blood by Pulse oximetry Systolic blood pressure Diastolic blood pressure Provider Name and Address Organization Details Last Updated DateTime 3 165.1 cm 35 kg/m2 11891.7 6 g 57 /min 98 % 98 % 120 mm[Hg] 80 mm[Hg] Berta Landon [facility] 3 14:54:39 Date Recorded Body height Body mass index (BMI) Body weight Heart rate Oxygen saturation Oxygen saturation in Arterial blood by Pulse oximetry Systolic blood pressure Diastolic blood pressure Provider Name and Address Organization Details Last Updated DateTime 5 167.64 cm 31.6 kg/m2 73232.1 g 68 /min 98 % 98 % 118 mm[Hg] 72 mm[Hg] CHEL BUSH [address] [place], [address] [place], [place] [facility] 5 14:37:57 Social History Question Answer Notes LastModified by Organizat ion Details LastModified Time Tobacco Smoking Status Never Smoker Not Available [facility] 09/23/2020 03:36:23 What Is Your Level Of Alcohol Consumption? Occasional [id number] Information not available 09/23/2020 What Is Your Level Of Caffeine Consumption? Occasional Green Tea [id number] Information not available 09/23/2020 What Was The Date Of Your Most Recent Tobacco Screening? 12/28/2024 Information not available 12/28/2024 Do You Or Have You Ever Used Any Other Forms Of Tobacco Or Nicotine? No Information not available 03/29/2022 Sex: Unknown Functional Status Question Answer Note LastModified by Organization D etails LastModified Time What is your exercise level? None [id number] Information not available 09/23/2020 Mental Status None recorded. Family History Nothing Reported. Medical History No medical history recorded. Gynecological HistoryNo gynecological history recorded. Obstetrics History GPAL:G 0 P 0 0 0 0 Immunizations Vaccine Type Date Status Note Provider Nam e and Address Organization Details Recorded Time Pneumococcal conjugate PCV 13 5 completed Not Available [facility] 05/19/2023 19:11:46 pneumococcal polysaccharide PPV23 8 completed Not Available [facility] 05/19/2023 19:11:46 Influenza, split virus, quadrivalent, preservative 1 completed Not Available [facility] 05/19/2023 19:11:46 COVID-19, mRNA, LNP-S, PF, 30 mcg/0.3 mL dose 1 completed Not Available [facility] 05/19/2023 19:11:46 influenza, unspecified formulation 2 completed Not Available [facility] 05/19/2023 19:11:46 Influenza, split virus, quadrivalent, preservative 8 completed Not Available [facility] 05/19/2023 19:11:46 Influenza, split virus, quadrivalent, preservative 9 completed Not Available [facility] 05/19/2023 19:11:46 COVID-19, mRNA, LNP-S, PF, 30 mcg/0.3 mL dose 1 completed Not Available [facility] 05/19/2023 19:11:46 COVID-19, mRNA, LNP-S, PF, 30 mcg/0.3 mL dose 1 completed Not Available [facility] 05/19/2023 19:11:46 Past Encounters Encounter ID Performer Location Encounter Start Date Encounter Closed Date Diagnosis/Indication Diagnosis SNOMED-CT Code Diagnosis ICD10 Code Diagnosis Note [id number] Bipin Cruz [facility] [address] [facility], [place] [address] 06/06/2018 14:12:09 06/06/2018 15:40:17 Atrial fibrillation 69466086 I48.91 here and is stable despite the resp infection Renewal of prescription 632809328 Z76.0 Pneumonia 655461148 J18. 9 zithromax [id number] Bipin Cruz [facility] [address] [facility], [place] [address] 06/14/2018 12:00:59 06/14/2018 15:05:50 Atrial fibrillation 04818827 I48.91 here and is stable despite the resp infection asking to use eliquis instead of warfarin Pneumonia 340082876 J18. 9 zithromax worked well doing ok now just stabilized and cough and clincal status is good [id number] Jennifer Walden NP, S [facility] [address] [facility], [place] [address] 08/15/2018 11:06:45 08/15/2018 16:48:09 Onychomycosis 122203872 B35.1 continue prescribed therapy, trim nails weekly [id number] Bipin Cruz [facility] [address] [facility], [place] [address] 11/03/2018 13:41:30 11/03/2018 14:28:06 Pneumonia 964352944 J18.9 zithromax worked well doing ok now just stabilized and cough and clincal status is good Atrial fibrillation 4943 6004 I48.91 stable and will be undrgoing another ablation for this here for follow up and is doing overall in the meantime meds tolerated now on xarelto instead of coumadin [id number] Bipin Cruz DO [facility] [address] [facility],[place] [address] 03/02/2019 14:56:02 03/02/2019 15:53:18 Atrial fibrillation 69634648 I48.91 stable and will possibly be undergoing another ablation for this here for follow up and is doing overall in the meantime meds tolerated now on xarelto instead of coumadin done with her amiodarone Edema 857916040 R60.9 seeing vascular surgeon to discuss vein ablation Sleep apnea 06410127 G47 .30 doing great with her cpap no major problems [id number] Bipin Cruz DO [facility] [address] [facility],[place] [address] 05/01/2019 09:04:16 05/01/2019 11:14:33 Atrial fibrillation 59375092 I48.91 stable and will possibly be undergoing another ablation for this here for follow up and is doing overall in the meantime meds tolerated now on xarelto instead of coumadin done with her amiodarone Depressive disorder 3548 9007 F32.1 willadd wellbutrin qday an d rechk in 4 weeks [id number] Bipin Cruz DO [facility] [address] [facility],[place] [address] 05/15/2019 10:52:07 05/15/2019 14:46:41 Adult health examination 560511711 Z00.00 note is not having any dysuria but urine shows sl heme, and wbc will send out but this has been seen before with no evid of uti Osteopenia 324294421 M85 .80 has a BMD in 2 weeks Depressive disorder 3548 9007 F32.1 will add wellbutrin 150 bid and rechk in 4 weeks [id number] Bipin Cruz DO [facility] [address] [facility] [address],[place] [address] 06/08/2019 11:10:41 06/08/2019 12:24:48 Paroxysmal atrial fibrillation 158576619 I48.0 quiet and asymp Edema 070342980 R60.9 seems excellent now wearing her support stocking Depressive disorder 3548 9007 F32.1 wellbutrin 150 bid is working welll will cont try to get a once a day dose Atrial fibrillation 4943 6004 I48.91 stable and will possibly be undergoing another ablation for this here for follow up and is doing overall in the meantime meds tolerated now on xarelto instead of coumadin done with her amiodarone Sleep apnea 82068413 G47 .30 doing great with her cpap no major problems [id number] February [facility] [address] [facility],[place] [address] 06/26/2019 13:56:08 06/26/2019 14:40:47 Traumatic hematoma 080726665 T14.8XXA elevated ice rest heat later on will monitor weekly here Injury of head 18462264 S09.90XA no postconcus sive sx Long-term current use of anticoagulant 208101805 Z79.01 [id number] Bipin Cruz [facility] [address] [facility],[place] [address] 07/30/2019 15:09:10 07/30/2019 16:36:09 Atrial fibrillation 20657199 I48.91 stable and will possibly be undergoing another ablation for this here for follow up and is doing overall in the meantime meds tolerated now on xarelto instead of coumadin done with her amiodarone Traumatic leg ulcer 2011 13267 L97.909 stabilized and now getting anaerob treatment Hidradenit is suppurativa 90693550 L73.2 [id number] February [facility] [address] [facility],[place] [address] 08/08/2019 11:33:45 08/08/2019 12:56:14 Acute pharyngitis 751589744 J02.9 ? viral vs thrush will cx Traumatic leg ulcer 2011 41132 L97.909 became infected was admitted, appt this tuesday Essential hypertension 45443173 I10 well controlled with metoprol Atrial fibrillation 4943 6004 I48.91 rate controlled [id number] February [facility] [address] [facility],[place] [address] 08/10/2019 13:16:52 08/10/2019 15:15:43 Traumatic leg ulcer 100262206 L97.909 healing well Edema 379507409 R60.9 improving Atrial fibrillation 4943 6004 I48.91 rate controlled Essential hypertension 29553876 I10 well controlled with metoprolol Cellulitis of lower limb 674606814 L03.119 resolved, wound healing Sepsis 05459162 A41.9 labs all back to baseline by discharge [id number] February [facility] [address] [facility],[place] [address] 10/03/2019 10:23:15 10/03/2019 11:03:25 Sleep apnea 40733200 G47.30 doesn't use cpap had used for a long time Essential hypertension 17073529 I10 well controlled with metoprolol Atrial fibrillation 4943 6004 I48.91 rate controlled on xarelto Pneumonia 998082357 J18. 9 possible pna [id number] Bipin Cruz [facility] [address],[place] [address] 10/16/2019 09:37:23 10/16/2019 10:22:54 Atrial fibrillation 93922760 I48.91 stable but having poss side effects with the metoprolol we will decrease the dose and see if this helps w=ith her fatigue she has no cp no sob she slleeps well at night here for follow up and is doing overall in the meantime meds tolerated now on xarelto instead of coumadin done with her amiodarone w will decrease the dose of metoprolol to 50 and see if her sx improve without causing issue with her afib. Edema 487117075 R60.9 seems excellent now wearing her support stocking Essential hypertension 01457717 I10 good readings [id number] Bipin Cruz [facility] [address] [facility],[place] [address] 10/24/2019 16:03:30 10/24/2019 16:25:58 Atrial fibrillation 57852338 I48.91 stable but having poss side effects with the metoprolol we will decrease the dose and see if this helps w=ith her fatigue she has no cp no sob she slleeps well at night here for follow up and is doing overall in the meantime meds tolerated now on xarelto instead of coumadin done with her amiodarone w will decrease the dose of metoprolol to 50 and see if her sx improve without causing issue with her afib. 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 advised to be mindful of deep breathing to avoid risk of pna ice/rest [id number] [facility] [address] [facility],[place] [address] 11/23/2019 14:04:03 11/23/2019 14:25:20 Pre-surgery evaluation 113085435 Z01.818 pt well known to us with a history of atrial fibrillati on currently well-contr olled, per the 2017 ACC guidelines ( revised) she is considered a low risk for the proposed procedure and is hence CLEARED FOR BOTH PROCEDURES (BILAT CATARACT REMOVAL) [id number] [facility] [address] [facility],[place] [address] 11/30/2019 11:17:15 11/30/2019 11:54:59 Depressive disorder 88053107 F32.1 well controlled on WB + duloxetine Atrial fibrillation 4943 6004 I48.91 rate controlled on xarelto Traumatic leg ulcer 2011 59333 L97.909 resolved Chest wall pain 58557103 6 R07.89 [place] [id number] [facility] [address] [facility] [place] [address] 12/25/2019 11:13:35 12/25/2019 12:10:42 Acute urinary tract infection 561220252 N39.0 push fluids Atrial fibrillation 4943 6004 I48.91 rate controlled on xarelto Essential hypertension 29773557 I10 well controlled with metoprolol 66113 CHEL BUSH [facility] [address] [facility] [address],[place] [address] 06/11/2020 15:36:57 06/11/2020 16:34:00 Cellulitis 231954983 L03.90 will start with 10 days of doxy and see if improvemen t pt encouraged to elevate leg as much as possible for swelling Atrial fibrillation 4943 6004 I48.91 stable, has not had any recent episodes Depressive disorder 3548 9007 F32.9 stable on medication Essential hypertension 54275076 I10 stable on medication , BP was 102/78 74010 Bipin Cruz DO [facility] [address] [facility],[place] [address] 06/20/2020 13:23:18 06/20/2020 13:54:46 Essential hypertension 87867008 I10 good readings Traumatic leg ulcer 2011 25506 L97.909 stabilized and improving with sliver dressing Pneumonia 226259700 J18. 9 stable now and doing great no signif exertional dyspnea 23740 CHEL BUSH [facility] [address] [facility],[place] [address] 07/04/2020 10:50:41 07/04/2020 13:35:17 Dysuria 04195387 R30.9 done well on bactrim in the past will send in for longer course considerin g hx and urinalysis [place] hematuria 18476747 5 R31.0 will call if it does not improve [id number] CHEL BUSH [facility] [address] [facility] [address],[place] [address] 10/10/2020 10:49:30 10/10/2020 12:51:52 Dysuria 53347250 R30.9 will send in cipro again, worked well last time Acute urin osvaldo tract infection 549248640 N39.0 most likely recurrent at this point [id number] Bipin Cruz DO [facility] [address] [facility], [place] [address] 10/13/2020 13:32:02 10/13/2020 14:29:38 Essential hypertension 87659357 I10 good readings Atrial fibrillation 4943 6004 I48.91 having no palpitatio ns and is stable no cp prior: stable but having poss side effects with the metoprolol we will decrease the dose and see if this helps w=ith her fatigue she has no cp no sob she slleeps well at night here for follow up and is doing overall in the meantime meds tolerated now on xarelto instead of coumadin done with her amiodarone Depressive disorder 1518 9007 F32.1 taper off bupropion will start mirtazapin e Edema 041640923 R60.9 seems excellent now wearing her support stocking [id number] CHEL BUSH [facility] [address] [facility], [place] [address] 01/28/2021 13:53:13 01/28/2021 14:48:51 Atrial fibrillation 22814603 I48.91 stable, has not had any recent episodes Muscle pain 73559784 M79 .18 will fu if no improvemen t, def MSK in nature, muscle are tight Spasm of m uscle of lower back 5944405105 6208804 M62.830 will start patient on muscle relaxer for muscle sprain of the back, right side will also use ibu/APAP PRN and heating pad [id number] CHEL BUSH [facility] [address] [facility], [place] [employer] [place] [address] 04/22/2021 14:45:59 04/24/2021 09:10:00 Cellulitis of lower limb 352244748 L03.119 will fu next week for recheck of the area Recurrent urinary tract infection 976877318 N11.8 will trial supplement and see how she does [id number] CHEL BUSH [facility] [address] [facility], [place] [address] 05/01/2021 10:46:43 05/01/2021 14:59:23 Cellulitis of lower limb 858107309 L03.119 will fu next week for recheck of the area Depressive disorder 3548 9007 F32.1 stable on medication Recurrent urinary tract infection N11.8 will trial supplement and see how she does as well as having current UTI, will trial clindamyci n for both celulitis and urinary infection and see how she does [id number] CHEL BUSH [facility] [address] [facility],[place] [address] 05/08/2021 10:31:15 05/08/2021 12:01:58 Edema 122199080 R60.9 stable now that her foot is in a boot Traumatic leg ulcer 2011 17289 L97.909 resolved Atrial fibrillation 4943 6004 I48.91 stable, has not had any recent episodes Fracture o f phalanx of foot 44863922 S92.911A will set up the patient will ortho referral for fuwill continue until the boot until then 75843 CHEL BUSH [facility] [address] [facility],[place] [address] 06/01/2021 10:50:51 06/01/2021 11:07:58 Recurrent urinary tract infection N11.8 will fu with use of cipro [id number] CHEL BUSH [facility] [address] [facility],[place] [address] 07/01/2021 10:07:10 07/01/2021 10:49:07 Dysuria 79382134 R30.9 will send out culture and fu with levo and urogyn referral Atrial fibrillation 4943 6004 I48.91 stable, has not had any recent episodes Recurrent urinary tract infection N11.8 agreed with urogyn referral for evaluation of recurrent UTIs [id number] Bipin Cruz DO [facility] [address] [facility] [address],[place] [address] 07/08/2021 10:56:27 07/08/2021 14:31:55 Essential hypertension 14573862 I10 good readings Atrial fibrillation 4943 6004 I48.91 having no palpitatio ns and is stable no cp prior: stable but having poss side effects with the metoprolol we will decrease the dose and see if this helps w=ith her fatigue she has no cp no sob she slleeps well at night here for follow up and is doing overall in the meantime meds tolerated now on xarelto instead of coumadin done with her amiodarone Cobalamin deficiency 190 681448 E53.8 will start b12 inj Recurrent urinary tract infection 124588540 N39.0 54231 Bipin Cruz [facility] [address] [facility] [address],[place] [address] 07/15/2021 10:52:28 07/15/2021 11:16:13 Cobalamin deficiency 231788900 E53.8 will start b12 inj 47044 Bipin Cruz [facility] [address] [facility] [address],[place] [address] 07/22/2021 10:51:40 07/22/2021 10:56:24 Cobalamin deficiency 684983173 E53.8 will start b12 inj 10314 Bipin Cruz [facility] [address] [facility] [address],[place] [address] 08/11/2021 09:13:01 08/11/2021 15:32:03 Depressive disorder 86246018 F32.1 still struggling with current regimen will stop the mirtazapin ewe will try to get her rexulti [id number] CHEL BUSH [facility] [address] [facility] [address],[place] [address] 10/21/2021 11:43:48 10/23/2021 16:37:38 Dyspnea 316988183 R06.02 start on z buster Nasal congestion 4040922 0 R09.81 start on abx and use OTC APAP and mucinex if needed Nausea 817848912 R11.0 will start on anti-emeti c and fu Suspected COVID-19 49078 4004 Z20.822 sent order to [facility] for testing [id number] CHEL BUSH [facility] [address] [facility] [address],[place] [address] 11/18/2021 13:42:25 11/18/2021 16:14:57 Diarrhea 10683237 A07.8 will fu with testing to r/o anything other than possible reaction to booster and recurrent use of antibiotic s [id number] CHEL BUSH [facility] [address] [facility] [address] [address] 01/04/2022 09:26:51 01/04/2022 14:42:49 Depressive disorder 98952862 F32.1 stable on medication Atrial fibrillation 4943 6004 I48.0 stable, has not had any recent episodes Traumatic leg ulcer 2011 29744 L97.909 resolved COVID-19 642685592 U07.1 will try medication for symptomati c treatment and to prevent PNA [id number] CHEL BUSH [facility] [address] [facility] [address],[place] [address] 02/16/2022 14:20:29 02/16/2022 15:55:25 Dysuria 70922981 R30.0 will send out culture and fu with levo and urogyn referral [place] hematuria 05859857 5 R31.0 had recent US kidney [place] [address] Bipin Cruz, [facility] [address] [facility],[place] [address] 03/24/2022 13:52:59 03/24/2022 15:57:45 Essential hypertension 01382825 I10 good readings Depressive disorder 3548 9007 F32.1 still struggling with current regimen will stop the mirtazapin ewe will try to get her rexulti in a increased dose of 1 mg daily Atrial fibrillation 4943 6004 I48.0 having no palpitatio ns and is stable no cp prior: stable but having poss side effects with the metoprolol we will decrease the dose and see if this helps w=ith her fatigue she has no cp no sob she slleeps well at night here for follow up and is doing overall in the meantime meds tolerated now on xarelto instead of coumadin done with her amiodarone [id number] CHEL BUSH [facility] [address] [facility] [place],[place] [address] 03/29/2022 13:44:19 03/29/2022 16:27:36 Acute urinary tract infection 181364057 N39.0 most likely recurrent at this pointwill start on ciprocan fu with uro/health sciences department chair if she would like [id number] Bipin Cruz [facility] [address] [facility] [address],[place] [address] 04/30/2022 11:56:51 04/30/2022 12:36:30 Essential hypertension 04243585 I10 good readings Atrial fibrillation 4943 6004 I48.0 having no palpitatio ns and is stable no cp prior: stable but having poss side effects with the metoprolol we will decrease the dose and see if this helps w=ith her fatigue she has no cp no sob she slleeps well at night here for follow up and is doing overall in the meantime meds tolerated now on xarelto instead of coumadin done with her amiodarone Acute urin osvaldo tract infection 700542451 N39.0 Advance care planning 71 1967463 Z71.89 Hepatitis C screening 41 0509196 Z11.59 Active or passive immunization 029247406 Z23 patient advised she is due for tdap & shingles Depressive disorder 3548 9007 F32.1 still struggling with current regimen will stop the mirtazapin ewe will try to get her rexulti in a increased dose of 1 mg daily Hordeolum externum of upper eyelid of right eye 6189591660 24618 H00.011 [id number] Bipin Cruz DO [facility] [address] [facility],[place] [address] 06/01/2022 11:51:45 06/01/2022 14:11:38 Atrial fibrillation 68820252 I48.0 having no palpitatio ns and is stable no cp prior: stable but having poss side effects with the metoprolol we will decrease the dose and see if this helps w=ith her fatigue she has no cp no sob she slleeps well at night here for follow up and is doing overall in the meantime meds tolerated now on xarelto instead of coumadin done with her amiodarone Sleep apnea 35362866 G47 .30 doing great with her cpap no major problems [id number] CHEL BUSH [facility] [address] [facility],[place] [address] 08/31/2022 11:40:42 08/31/2022 16:36:49 Iron deficiency anemia 00225418 D50.0 start on low iron and diet changes Dysuria 50700614 R30.0 getting cystoscopy soon [id number] CHEL BUSH [facility] [address] [facility],[place] [address] 09/23/2022 10:27:03 09/23/2022 11:38:36 Pre-surgery evaluation 333341391 Z01.818 The patient was seen in the office today for pre-op evaluation . All medical conditions on patient's problem list were addressed and are currently stable, no interventi on needed at this time. Based on history and physical performed, the patient is cleared for surgery. Deep venou s thrombosis 853081808 I82.409 will be mindful of patient to monitor for clots post-ophav ing her come in for follow-up after surgery Atrial fibrillation 4943 6004 I48.0 stable Essential hypertension 19846208 I10 stable on medication Sleep apnea 68850685 G47 .33 history of chronic sleep apnea 80934 CHEL BUSH [facility] [address] [facility],[place] [address] 11/08/2022 14:55:38 11/08/2022 16:29:50 Atrial fibrillation 91516973 I48.0 stable Restlessne ss and agitation 125768797 R45.1 will switch to abilify and increase ativan to 1 mg TID Recurrent urinary tract infection 119474336 N11.[address] fu with Dr. Lam on 11/29/22 [id number] CHEL BUSH [facility] [address] [facility],[place] [address] 04/04/2023 14:45:06 04/04/2023 15:50:03 Recurrent falls 989487298 R29.6 stable Chronic ur inary tract infection 151299723 N10 stable currently Chronic cystitis 7342437 2 N30.20 has a consult with Chalo about bladder removal Altered mental status 41 0934916 R41.82 stable todayno issues or concernsmo od is appropriat e Depressive disorder 3548 9007 F32.1 stable on medication Atrial fibrillation 4943 6004 I48.0 stable Traumatic leg ulcer 2011 55649 S87.81XA resolved Deep venou s thrombosis 829746114 I82.409 stable Fall 2730373 R29.6 stableno recent falls or accidents [id number] Bipin Cruz DO [facility] [address] [facility], [employer] [place] [address] 06/13/2023 13:32:08 06/13/2023 14:06:37 Dysuria 34191732 R30.0 [id number] CHEL BUSH [facility] [address] [facility], [place] [address] 10/12/2023 08:19:42 10/12/2023 10:56:00 Atrophic vaginitis 15073343 N95.2 will refill for patient Chronic ul cer of lower extremity 45117601 L97.919 stable/res olved Acute hemo rrhagic cystitis 62312267 N30.01 will give a course of levofloxac in in case it is needed this week [id number] CHEL BUSH [facility] [address] [facility], [place] [address] 12/28/2024 14:29:13 12/28/2024 15:05:38 Restlessness and agitation 765899363 R45.1 stable on the medication Depressive disorder 3548 9007 F32.1 stable on medication Moderate m ajor depression 916788 F32.1 will set up with updated script Essential hypertension 49716756 I10 stable on medication Atrial fibrillation 4943 6004 I48.0 stable Deep venou s thrombosis of lower extremity 812936413 I82.402 resolved Ulcer of foot 79468713 L 97.919 resolved Cobalamin deficiency 190 776454 E53.8 needs recheck, was not given her supplement wile she was in [facility] Concerns Section Related Observation LastModified by Organization Detai ls LastModified Time None Recorded Concern Status LastModified by Organization Details LastModified Time None Recorded Advance Directives Directive None Recorded Payers Encounter Date Sequence Insurance Name Policy Number Policy Huynh Covered Member ID Huynh Member ID Guarantor Name 11/08/2022 1 [facility] [employer] [id number] Amy A Wichita [id number] Amy W[place] 04/04/2023 1 [employer] [facility] [id number] Amy A Adolfo [id number] Amy [place] 06/13/2023 1 [employer] [facility] [employer] [id number] Amy A W[place] [id number] Amy [place] 10/12/2023 1 [facility] [facility] [employer] [id number] Amy A Adolfo [id number] Amy Adolfo 12/28/2024 1 [facility] [facility] [employer] [id number] Amy A Wichita [id number] Amy Wichita Notes Date Note Type Note Provider Name and Address Organization Details Recorded Time 2 text/html hospital f/u UTI causing sepsis d/c to rehab need another urine sampledid not get the result from rehabwill collect another oneprovided hat, cup and wipes patient daughter reporting violent outbursts, agitation, SI and tearfulnessagreed to adjusting to the meds with a f/u in a few weeks will switch from the rexulti to the abilify due to new onset tremors and patient finding it ineffectivethe patient reports no chest pain, no fever, no chills, no abdominal pain, no n/v, does report diarrhea but mild, not much different than normal denies chest painusing the walker which helpsweakness due to long stay in hospital has PT and OT coming in to evaluate herhas VNA coming told to monitor her symptoms for fever, AMS, and changes of her urinary symptoms CHEL BUSH [address] [facility], [place], [address], [facility] 11/08/2022 15:40:25 3 text/html Hospital f/u patient admitted to hospital due to AMS in the setting of an acute UTIalso was on oxycodone after last ER visit for fall; resulting in constipation and complicationtreated with Baird Cather and augmentinrehab order placed after assessment by OT and PT finding significant reduction in functional capacitytransferred [facility] and monitoring of baird cath and patient monitoring medication list assessed in hospital d/c summary TODAY:the patient did really well at [facility] PT and OT coming to the house 2 to 3 times pt has chronic cystitis and chronic UTIdoes see a specialist for this; uro/health sciences department chair was told she had a fistula prior; which she has not had in awhilethe patient will be seeing Chalo uro-oncologist the patient reports that she is okay todayno symptoms of UTI; no fever, no chills no recent falls since thenseeing if the buproprion works with a higher dosage she is having cognitive therapy that was done at rehab CHEL BUSH [address] [place], [address], [facility] 04/04/2023 15:31:38 3 text/html [facility] d/c the patient reports that she has some burning in her vaginal areahas not been able to use the estradiol cream since they do not have it (may have lost it)will refill for patient will give course of the levofloxacin to use if needed during the weekknows to be careful with the prozac reviewed her medication list with patientno changes besides d/c diltiazem at the hospital due to BP drops BP stable at homewill monitored closelywill fu with patient if any changes otherwise doing wellno signs of infectionmental status at baseline CHEL BUSH [address] [place], [address], [facility] 10/12/2023 10:16:08 5 text/html d/c moth exterminator care restless agitation: stable on the medicationthe [...] has not been on it at the retirement, will needs levels rechecked to see if she needs to restart the supplement no other changes, everything corrected in chart all questions answered today CHEL BUSH [address] [place] [address], [place], [address], [facility] 12/28/2024 15:05:37 OBGyn Episode No OBEpisode recorded.
[2024-12-28 17:51] LABS: MANUAL DIFF FLAG NO
[2024-12-28 17:53] LABS: Basophils Absolute Auto 0.1 X10*3/uL (0.0-0.2); Basophils Percent Auto 0.9 % (0-2); Eosinophils Absolute Auto 0.2 X10*3/uL (0.0-0.4); Eosinophils Percent Auto 2.5 % (0-4); Hemoglobin 13.6 g/dl (12.0-16.0); Imm Gran Abs Auto 0.02 X10*3/uL (0.00-0.03); Imm Gran Pct Auto 0.3 % (0.0-0.4); Lymphocytes Absolute Auto 1.7 X10*3/uL (1.2-4.9); Lymphocytes Percent Auto 26.9 % (20-40); Mean Corpuscular HGB Conc 31.6 g/dl (31.0-35.0); Mean Corpuscular Volume 85.3 fL (80.0-98.0); Mean Platelet Volume 9.6 fL (9.4-12.3); Monocytes Absolute Auto 0.7 X10*3/uL (0.1-1.2); Monocytes Percent Auto 10.3 % (2-11); Neutrophils Absolute Auto 3.8 x10*3/uL (2.0-8.3); Neutrophils Percent Auto 59.1 % (45-73); Platelet Count 315 X10*3/uL (160-400); Red Blood Count 5.04 X10*6/uL (4.20-5.50); Red Cell Distribution Width 14.7 % (11.0-16.0); White Blood Count 6.4 X10*3/uL (4.8-10.8)
[2024-12-28 18:09] LABS: Alanine Aminotransferase 9 U/L (0-31); Albumin Level 3.6 g/dL (3.5-5.0); Alkaline Phosphatase 93 U/L (39-117); Anion Gap 18 (12-20); Aspartate Amino Transferase 16 U/L (5-31); Bilirubin Total 0.4 mg/dL (0.0-1.0); Blood Urea Nitrogen 20 mg/dL (9-16); Calcium 9.7 mg/dL (8.4-10.2); Carbon Dioxide 18 mmol/L (22-29); Chloride 109 mmol/L (96-108); Estimated Glomerular Filt Rate 49; Glucose Random 97 mg/dL (60-115); Potassium 4.3 mmol/L (3.3-5.1); Sodium 141 mmol/L (135-145); Total Protein 7.6 g/dL (6.5-8.0)
[2024-12-28 18:37] LABS: Vitamin B12 734 pg/mL (200-900)
== END 2024-12-28 15:12 | disposition home or self-care (01) ==
LOC: HO.MANLDS 15:11
PROVIDERS: Visit Provider Internal Medicine
DX: E53.8 Deficiency of other specified B group vitamins (principal)
CPT/HCPCS: 36415; 80053; 82607; 85025